=== PATIENT | female | born 1970 | race Caucasian/White ===

== ENCOUNTER 2017-02-21 15:24 | Emergency (ER) | payer MEDICAID ==
[2017-02-21 15:33] VITALS: RESP 20; O2SAT 98
--- NOTE | 2017-02-21 15:55 | C.PDOC ---
History Of Present Illness 47 year old female with PMH anxiety and depression presents to ED with complaints of headache for one year. Patient reports she gets headaches described as pressure like and feels her veins swelling up and crawling in brain. She states this occasionally and is associated with dizziness; the pain then travels into her neck and body. She begins to panic and feels her throat closing up and cannot catch her breath. She states she has been seen at other hospitals and by her PCP Dr Rdz who prescribed sertraline 50mg. Patient states she does not understand why she feels this way. She reports decreased sleep at night and is worried something is wrong with her brain. She is requesting CT of her head. Denies any current headache, dizziness, numbness, weakness, visual changes, fever. Time Seen by Provider: 02/21/17 15:27 Chief Complaint (Nursing): Headache History Per: Patient History/Exam Limitations: no limitations Onset/Duration Of Symptoms: Other (1 year) Past Medical History Reviewed: Historical Data, Nursing Documentation, Vital Signs Vital Signs: Last Vital Signs Temp 98.0 F 02/21/17 17:14 Pulse 63 02/21/17 17:14 Resp 20 02/21/17 17:14 BP 106/73 02/21/17 17:14 Pulse Ox 98 02/21/17 17:14 - Medical History PMH: Anxiety, Asthma, Depression, HTN Surgical History: No Surg Hx - [facility] Procedures INJECT/INFUSE NEC (11/12/13) NEBULIZER THERAPY (11/12/13) Family History: States: No Known Family Hx - Social History Hx Tobacco Use: No Hx Alcohol Use: No Hx Substance Use: No - Immunization History Hx Tetanus Toxoid Vaccination: No Hx Influenza Vaccination: No Hx Pneumococcal Vaccination: No Review Of Systems Except As Marked, All Systems Reviewed And Found Negative. Constitutional: Negative for: Fever, Chills Cardiovascular: Negative for: Chest Pain Respiratory: Negative for: Shortness of Breath Gastrointestinal: Negative for: Nausea, Vomiting Musculoskeletal: Positive for: Neck Pain Neurological: Positive for: Headache, Dizziness. Negative for: Weakness, Numbness, Incoordination, Change in Speech, Confusion, Seizures, Altered Mental Status Psych: Positive for: Anxiety Physical Exam - Physical Exam Appears: Well, Non-toxic, No Acute Distress Skin: Warm, Dry, No Rash Head: Atraumatic, Normacephalic, No Swelling, Other (no swelling or tenderness to temporal areas) Eye(s): bilateral: Normal Inspection, PERRL, EOMI (no nystagmus) Ear(s): Bilateral: Normal Nose: Normal Oral Mucosa: Moist Lips: Normal Appearing Throat: Normal, No Erythema, No Exudate, No Drooling, No Mass Neck: Normal ROM Chest: Symmetrical Cardiovascular: Rhythm Regular, No Murmur Respiratory: Normal Breath Sounds, No Accessory Muscle Use, No Rales, No Rhonchi , No Stridor, No Wheezing Gastrointestinal/Abdominal: Soft, No Tenderness, No Guarding, No Rebound Extremity: Bilateral: Atraumatic, Normal Color And Temperature, Normal ROM Neurological/Psych: Oriented x3, Normal Speech, Normal Cranial Nerves (II-XII intact), Normal Motor, Normal Sensation Gait: Steady ED Course And Treatment O2 Sat by Pulse Oximetry: 98 (room air) Pulse Ox Interpretation: Normal Medical Decision Making Medical Decision Making: Impression: headache, anxiety Prior records reviewed: ER last visit 04/20/16 for allergic reaction and treated with IV solumedrol, Benadryl and Pepcid with improvement. Patient has been seen at [facility] for anxiety and depression, no recent admissions Plan: * Head CT * Reglan Progress: CT head IMPRESSION: Mildly motion artifact exam. No definitive acute intracranial findings as discussed above. Symptoms persist or worsen follow-up CT or MRI is strongly advised. Patient reevaluated and resting comfortably in no distress. Neuro intact and stable vital signs. Patient given copy of CT report. She is asking for medication for her anxiety and to help her sleep. 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
--- NOTE | 2017-02-21 16:52 | CT ---
PROCEDURE: CT HEAD WITHOUT CONTRAST. HISTORY: headache for one year intermittent COMPARISON: None available. TECHNIQUE: Axial computed tomography images were obtained through the head/brain without intravenous contrast. Radiation dose: Total exam DLP = 919 mGy-cm. This CT exam was performed using one or more of the following dose reduction techniques: Automated exposure control, adjustment of the mA and/or kV according to patient size, and/or use of iterative reconstruction technique. FINDINGS: HEMORRHAGE: No intracranial hemorrhage. BRAIN: No mass effect or edema. No atrophy or chronic microvascular ischemic changes. VENTRICLES: Unremarkable. No hydrocephalus. CALVARIUM: Unremarkable. PARANASAL SINUSES: Unremarkable as visualized. No significant inflammatory changes. MASTOID AIR CELLS: Unremarkable as visualized. No inflammatory changes. OTHER FINDINGS: Motion Roger limits exam somewhat. IMPRESSION: Mildly motion artifact exam. No definitive acute intracranial findings as discussed above. Symptoms persist or worsen follow-up CT or MRI is strongly advised.
[2017-02-21 17:16] VITALS: BP 106/73; PULSE 63; TEMP 98
== END 2017-02-21 17:20 | disposition home or self-care (01) ==
LOC: C.ER 15:24
DX: R51 Headache (principal); F41.9 Anxiety disorder, unspecified

== ENCOUNTER 2017-11-18 10:17 | Emergency (ER) | payer MEDICAID ==
[2017-11-18 12:07] VITALS: BP 129/82; PULSE 68; RESP 18; TEMP 98.2; O2SAT 100
--- NOTE | 2017-11-18 12:13 | C.PDOC ---
Time Seen by Provider: 11/18/17 10:46 Chief Complaint (Nursing): Headache History Per: Patient Onset/Duration Of Symptoms: Days, Waxing/Waning, Gradual Current Symptoms Are (Timing): Still Present Severity: Moderate Quality: Tightness Associated Symptoms: denies: Nausea, Vomiting, Extremity Weakness Additional History Per: Prior Records Past Medical History Reviewed: Historical Data, Nursing Documentation, Vital Signs Vital Signs: Last Vital Signs Temp 98.2 F 11/18/17 12:07 Pulse 68 11/18/17 12:07 Resp 18 11/18/17 12:07 BP 129/82 11/18/17 12:07 Pulse Ox 100 11/18/17 12:07 - Medical History PMH: Anxiety, Asthma, Depression, HTN - [facility] Procedures INJECT/INFUSE NEC (11/12/13) NEBULIZER THERAPY (11/12/13) Family History: States: Unknown Family Hx - Social History Hx Tobacco Use: No Hx Alcohol Use: No Hx Substance Use: No - Immunization History Hx Tetanus Toxoid Vaccination: No Hx Influenza Vaccination: No Hx Pneumococcal Vaccination: No Review Of Systems Except As Marked, All Systems Reviewed And Found Negative. Constitutional: Negative for: Fever, Weakness ENT: Positive for: Nose Congestion Respiratory: Positive for: Cough. Negative for: Shortness of Breath, Hemoptysis Gastrointestinal: Negative for: Nausea, Vomiting, Abdominal Pain Skin: Negative for: Rash Neurological: Positive for: Headache. Negative for: Weakness, Numbness, Seizures, Altered Mental Status Physical Exam - Physical Exam Appears: Non-toxic, No Acute Distress Skin: Normal Color, Warm, Dry, No Rash Head: Atraumatic, Normacephalic Eye(s): bilateral: Normal Inspection, PERRL, EOMI Neck: Normal ROM, Supple Cardiovascular: Rhythm Regular Respiratory: Normal Breath Sounds, No Accessory Muscle Use Gastrointestinal/Abdominal: Soft, No Tenderness Extremity: Normal ROM Neurological/Psych: Oriented x3, Normal Speech, Normal Cognition, Normal Cranial Nerves, No Cerebellar Signs, Normal Motor, Normal Sensation ED Course And Treatment O2 Sat by Pulse Oximetry: 100 Pulse Ox Interpretation: Normal Reassessment Condition: Improved Disposition Counseled Patient/Family Regarding: Diagnosis, Need For Followup, Rx Given - Disposition Referrals: Fidencio Mosqueda MD [Staff Provider] - Disposition: HOME/ ROUTINE Disposition Time: 12:11 Condition: STABLE Additional Instructions: Follow up with your primary doctor and with an Neurologist for further evaluation and treatment. Return to the ER if you develop worsening of symptoms or if you have any other concerns. Prescriptions: Acetaminophen/Butalbital/Caf [Fioricet] 1 tab PO Q4 PRN #30 tab PRN Reason: Headache Instructions: Headache, Adult (DC) - Clinical Impression Clinical Impression: Headache
== END 2017-11-18 12:22 | disposition home or self-care (01) ==
LOC: C.ER 10:17
DX: R51 Headache (principal); I10 Essential (primary) hypertension
CPT/HCPCS: 96372; 99284; J1885

== ENCOUNTER 2018-05-05 09:49 | Emergency (ER) | payer MEDICAID ==
[2018-05-05 10:31] VITALS: RESP 18
[2018-05-05 10:35] VITALS: O2SAT 100
--- NOTE | 2018-05-05 11:12 | C.PDOC ---
History Of Present Illness 48 year old female presents to the ED for evaluation of worsening anxiety, palpitations and panic for the past 3 days. Patient is also complaining of left parasternal discomfort and nasal congestion/irritation. Patient states she wakes up in panic, and has been paranoid of situations in her apartment.Patient has had multiple prior presentations concerning palpitations, anxiety and emotional disturbances in this ED. Patient claims that every time she presents to this ED, the staff disregards her as "crazy and anxious." Patient feels the need to write a complaint letter after every visit. Patient states that she will go to [facility] immediately after being discharged from this ED. She has not followed up with outpatient psychiatrist or taken any of her prescribed medications. Patient also states she has been non-compliant with her Claritin daily, stating she uses holistic remedies like the mist of boiling oregano for her nasal congestion. Patient denies suicidal/homicidal ideation, chest pain or difficulty breathing. Time Seen by Provider: 05/05/18 10:15 Chief Complaint (Nursing): Shortness Of Breath History Per: Patient History/Exam Limitations: no limitations Onset/Duration Of Symptoms: Days (3) Current Symptoms Are (Timing): Still Present Associated Symptoms: Nasal Congestion Additional History Per: Patient Past Medical History Reviewed: Historical Data, Nursing Documentation, Vital Signs - Medical History PMH: Anxiety, Asthma, Depression, HTN Denies: HIV, Chronic Kidney Disease, Seizures, Sexually Transmitted Disease Surgical History: No Surg Hx - [facility] Procedures INJECT/INFUSE NEC (11/12/13) NEBULIZER THERAPY (11/12/13) Family History: States: Unknown Family Hx - Social History Hx Tobacco Use: No Hx Alcohol Use: No Hx Substance Use: No - Immunization History Hx Tetanus Toxoid Vaccination: Yes Hx Influenza Vaccination: No Hx Pneumococcal Vaccination: No Review Of Systems ENT: Positive for: Nose Congestion Cardiovascular: Positive for: Palpitations. Negative for: Chest Pain Respiratory: Negative for: Shortness of Breath Musculoskeletal: Positive for: Other (left parasternal discomfort ) Psych: Positive for: Anxiety. Negative for: Suicidal ideation Physical Exam - Physical Exam Appears: Non-toxic, No Acute Distress, Other (anxious ) Skin: Normal Color, Warm, Dry, No Rash Head: Atraumatic, Normacephalic Eye(s): bilateral: Normal Inspection Ear(s): Bilateral: Normal Nose: Other (erythema, right>left ) Oral Mucosa: Moist Throat: Normal, No Erythema, No Exudate Neck: Supple Chest: Symmetrical, No Deformity, Other (left parasternal chest discomfort is digitally reproducible at T4 region) Cardiovascular: Rhythm Regular, No Murmur Respiratory: Normal Breath Sounds, No Rales, No Rhonchi, No Wheezing Gastrointestinal/Abdominal: Other (deferred) Extremity: Other (deferred) Neurological/Psych: Other (pressured speech, poor insight) Additional Physical Exam Comments: Geothermal Technician: Dax Jenkins RN ED Course And Treatment ECG: Interpreted By Me ECG Rhythm: Sinus Rhythm ECG Interpretation: Normal Rate From EC O2 Sat by Pulse Oximetry: 100 (on RA) Pulse Ox Interpretation: Normal Progress Note: I attempted to console the patient, but she continues to in terrupt and be dismissive. Patient is refusing medications. Medical Decision Making Medical Decision Making: L parasternal costochondritis motrin Seasonal allergies/asthma clear lungs Reinforced Claritin daily Nasal sprays Anxiety bizarre admits to debilitating anxiety disorder multiple presentations for psych/EDP/anxiety/Palps with neg w/u's. Non-compliant w psych f/u. Reinforced CRC f/u. Disposition Doctor Will See Patient In The: Office Counseled Patient/Family Regarding: Studies Performed, Diagnosis - Disposition Referrals: [facility] [Outside] [facility] [Outside] [facility] [Outside] [facility] [Outside] [facility] [Outside] Pinky Rdz MD [Medical Doctor] - Disposition: HOME/ ROUTINE Disposition Time: 10:33 Condition: GOOD Additional Instructions: L chest discomfort EKG normal digitally and positionally reproducable pain is musculoskeletal motrin 400-600 mg every 6 hours as needed no heavy lifting/repetative chest wall movements for 1 week Allergic Rhinitis/asthma Continue Claritin 10 mg daily Take every day in the morning Nasonex nasal spray 1 spray to each nostril every 12 hours as needed Anxiety/depression/panic: PLEASE follow-up @ the [facility] or our [facility] These are FREE services Counseling and Anxiety medications may be offered to help you Instructions: Seasonal Allergies in Adults, Costochondritis, Anxiety, Adult (DC) Forms: [employer] (Malay) - Clinical Impression Clinical Impression: Anxiety, Costochondritis, Allergic rhinitis - Scribe Statement The provider has reviewed the documentation as recorded by the Scribe (Irena Read) Provider Attestation: All medical record entries made by the Scribe were at my direction and personally dictated by me. I have reviewed the chart and agree that the record accurately reflects my personal performance of the history, physical exam, medical decision making, and the department course for this patient. I have also personally directed, reviewed, and agree with the discharge instructions and disposition.
--- NOTE | 2018-05-06 21:52 | CARD ---
APPROVED REPORT Date of service: 05/05/2018 EKG Measurement Heart [id number] <Conclusion> Normal sinus rhythm Possible Left atrial enlargement Borderline ECG
== END 2018-05-05 10:54 | disposition home or self-care (01) ==
LOC: C.ER 09:49
DX: F41.9 Anxiety disorder, unspecified (principal); M94.0 Chondrocostal junction syndrome [Tietze]; J30.9 Allergic rhinitis, unspecified

== ENCOUNTER 2018-08-17 13:28 | Emergency (ER) | payer MEDICAID ==
[2018-08-17 13:45] VITALS: BP 130/84; PULSE 99; RESP 18; TEMP 97.8; O2SAT 95
--- NOTE | 2018-08-17 14:51 | C.PDOC ---
History Of Present Illness 48-year-old female presents to the ED accompanied by her son for evaluation of chronic occasional bilateral ear and by temporal discomfort which has been ongoing for months. Patient states that she has been prescribed nasal decongestants and Flonase by her critical power technician, which she does not want to take. She admits to using Q-tips in her ears. Otherwise, she denies fever, chills, ear discharge, or clenching her teeth. Time Seen by Provider: 08/17/18 14:27 Chief Complaint (Nursing): Headache History Per: Patient History/Exam Limitations: no limitations Onset/Duration Of Symptoms: Days Current Symptoms Are (Timing): Still Present Past Medical History Reviewed: Historical Data, Nursing Documentation, Vital Signs Vital Signs: Last Vital Signs Temp 97.8 F 08/17/18 13:42 Pulse 99 H 08/17/18 13:42 Resp 18 08/17/18 13:42 BP 130/84 08/17/18 13:42 Pulse Ox 95 08/17/18 13:42 - Medical History PMH: Anxiety, Asthma, Depression Denies: Diabetes, Hepatitis, HIV, HTN, Chronic Kidney Disease, Seizures, Sexually Transmitted Disease Surgical History: No Surg Hx - [facility] Procedures INJECT/INFUSE NEC (11/12/13) NEBULIZER THERAPY (11/12/13) Family History: States: Unknown Family Hx - Social History Hx Tobacco Use: No Hx Alcohol Use: No Hx Substance Use: No - Immunization History Hx Tetanus Toxoid Vaccination: Yes Hx Influenza Vaccination: No Hx Pneumococcal Vaccination: No Review Of Systems Constitutional: Negative for: Fever, Chills ENT: Positive for: Other (bilateral ear and bi-temporal discomfort ). Negative for: Ear Discharge Physical Exam - Physical Exam Appears: Non-toxic, No Acute Distress, Other (anxious ) Skin: Normal Color, Warm, Dry Head: Atraumatic, Normacephalic Eye(s): bilateral: Normal Inspection Ear(s): Bilateral: Other (excoriations noted to canals. no signs of infection ) Nose: No Discharge, Other (moderate-severe erythema to bilateral nasal passages. ) Oral Mucosa: Moist Throat: Normal, No Erythema, No Exudate Neck: Supple Chest: Symmetrical, No Deformity, No Tenderness Cardiovascular: Rhythm Regular, No Murmur Respiratory: Normal Breath Sounds, No Rales, No Rhonchi, No Wheezing Extremity: Normal ROM, Capillary Refill (less than 2 seconds ) Neurological/Psych: Oriented x3, Normal Speech, Normal Cognition ED Course And Treatment O2 Sat by Pulse Oximetry: 95 Medical Decision Making Medical Decision Making: Chronic nasal congestion non-compliant w flonase and decongestant sprays as Rx'd by Oil And Gas Recruiter poor insight myriad of unrelated symptoms many prior visits for anxiety related issues. Disposition Doctor Will See Patient In The: Office Counseled Patient/Family Regarding: Studies Performed, Diagnosis - Disposition Referrals: Pinky Rdz MD [Medical Doctor] - Disposition: HOME/ ROUTINE Disposition Time: 14:51 Condition: GOOD Additional Instructions: continue Flonase 1 spray to each nostril every 12 hours Continue through the Winter TWICE A DAY Decongestant sprays as prescribed by your Oil And Gas Recruiter Instructions: Cough, Runny Nose, and the Common Cold (DC), Sinus Headache (DC) Forms: [employer] (Cuban) - Clinical Impression Clinical Impression: Nasal congestion - Scribe Statement The provider has reviewed the documentation as recorded by the Scribe (Irena Read) Provider Attestation: All medical record entries made by the Scribe were at my direction and personally dictated by me. I have reviewed the chart and agree that the record accurately reflects my personal performance of the history, physical exam, medical decision making, and the department course for this patient. I have also personally directed, reviewed, and agree with the discharge instructions and disposition.
== END 2018-08-17 14:56 | disposition home or self-care (01) ==
LOC: C.ER 13:28
DX: R09.81 Nasal congestion (principal)